=== PATIENT | female | born 1995 | race Caucasian/White ===

== ENCOUNTER 2018-10-24 07:07 | Emergency (ER) | payer BC ==
[2018-10-24] MEDS ORDERED: Lidocaine Viscous Sol 2% 15 ml UD Cup ONE ×2 (07:36→07:37)
[2018-10-24] MEDS ORDERED: Pantoprazole 40 MG VIAL ONE (07:36)
[2018-10-24] MEDS ORDERED: Ondansetron PF 4 MG/2 ML Vial ONE (07:36)
[2018-10-24] MEDS ORDERED: Mag-Al Plus 1200 MG/1200 MG/120 MG/30 ML UDCUP ONE (07:36)
[2018-10-24 08:10] LABS: #Basophils 0.1 thou/uL (0.0-0.2); #Eosinphils 0.2 thou/uL (0.0-0.7); #Lymphocytes 2.3 thou/uL (1.20-3.40); #Monocytes 0.8 thou/uL (0.11-0.59); #Neutrophils 7.6 thou/uL (1.40-6.50); %Basophils 1.3 % (0.0-1.0); %Eosinophils 1.8 % (0.0-10.0); %Lymphocytes 20.7 % (28.0-48.0); %Monocytes 7.5 % (0.0-4.0); %Neutrophils 68.7 % (31.0-61.0); Hemoglobin 15.8 g/dL (12.0-16.0); Mean Corpuscular HGB CONC 35.6 g/dL (32.0-36.0); Mean Corpuscular Hemoglobin 31.4 pg (25.0-35.0); Mean Corpuscular Volume 88.2 fL (78.0-98.0); Mean Platelet Volume 7.9 fL (7.4-10.4); Platelet Count 340 thou/uL (130-400); RBC Distribution Width 12.2 % (11.5-14.5); Red Blood Cell (RBC) Count 5.05 mill/uL (4.00-5.20); White Blood Cell (WBC) Count 11.1 thou/uL (4.8-10.8)
[2018-10-24 08:16] LABS: Bilirubin Negative (Negative); Blood, Urine Trace (Negative); Clarity Turbid (Clear); Glucose, Urine (Dipstick) Negative (Negative); Leukocyte Negative (Negative); Nitrite Negative (Negative); Pregnancy Test - Urine (BHCG) Negative (Negative); Pregu Control Background? CLEAR/WHITE (CLR/WHITE); Pregu Control Bar Appear? YES (CONTROL BAR); Protein, Urine (Dipstick) 100 mg/dL (Neg-Trace); Urobilinogen 0.2 mg/dL (0.2-1.0)
[2018-10-24 08:21] LABS: Bacteria/HPF 1+ HPF (None Seen); RBC/HPF 0-3 HPF (0-3); WBC/HPF 0-3 HPF (0-3)
[2018-10-24 08:22] LABS: Crystals/HPF 3+ AMORPH PHOS HPF (Negative)
[2018-10-24 08:27] LABS: ALT (SGPT) 35 U/L (8-55); AST (SGOT) 21 U/L (5-34); Albumin 4.3 g/dL (3.5-5.0); Alkaline Phosphatase 51 U/L (40-150); Anion Gap 17 mmol/L (10-20); BUN (Urea Nitrogen) 7 mg/dL (7.0-18.7); Bilirubin, Total 0.4 mg/dL (0.2-1.2); Calc. Creatinine Clearance 0 mL/min (70-130); Calcium 9.7 mg/dL (7.8-10.44); Carbon Dioxide 16 mmol/L (22-29); Chloride 109 mmol/L (98-107); Estimated GFR-MDRD Greater than 90; Glucose 121 mg/dL (70-105); Lipase 16 U/L (8-78); Potassium 3.7 mmol/L (3.5-5.1); Protein, Total 7.3 g/dL (6.0-8.3); Sodium 138 mmol/L (136-145)
--- NOTE | 2018-10-24 08:41 | CT ---
CT Abdomen Pelvis WO Con: 10/24/2018 7:33 AM HISTORY: Intermittent abdominal pain for 2 to 3 months COMPARISON: None. Procedure: Multiple contiguous axial images were obtained and a CT of the abdomen and pelvis without IV contrast . Coronal reformats were performed. FINDINGS: This examination is limited for the evaluation of solid organs and vascular structures due to the lac k of intravenous contrast. Lower Chest: within normal limits. Abdomen: Liver: within normal limits. Bile Ducts: Normal caliber. Gallbladder: No calcified gallstones. Normal caliber wall. Pancreas: within normal limits. Spleen: within normal limits. Adrenals: within normal limits. Kidneys: within normal limits. Pelvis: Reproductive Organs: No pelvic masses. Ureters: within normal limits. Bladder: within normal limits. Bowel: Normal caliber. Normal appendix. Mesenteric Lymph Nodes: No enlarged mesenteric lymph nodes. Peritoneum: No ascites or free air, no fluid collection. Vessels: Normal caliber aorta Retroperitoneum: within normal limits. Abdominal Wall: within normal limits. Bones: within normal limits. IMPRESSION: No evidence of acute intraabdominal\pelvic abnormality.
== END 2018-10-24 09:09 | disposition home or self-care (01) ==
LOC: SCSER 07:07
DX: R10.9 Unspecified abdominal pain (principal); F41.9 Anxiety disorder, unspecified; F31.9 Bipolar disorder, unspecified; F17.210 Nicotine dependence, cigarettes, uncomplicated; Z79.899 Other long term (current) drug therapy
CPT/HCPCS: 74176; 80053; 81003; 81015; 81025; 83690; 85025; 96361; 96374; 96375; C9113; J2405

== ENCOUNTER 2019-02-12 10:35 | Inpatient (IN) | payer BC ==
[2019-02-12 11:47] LABS: #Basophils 0.1 thou/uL (0.0-0.2); #Eosinphils 0.1 thou/uL (0.0-0.7); #Lymphocytes 1.4 thou/uL (1.20-3.40); #Monocytes 0.9 thou/uL (0.11-0.59); #Neutrophils 7.6 thou/uL (1.40-6.50); %Basophils 0.9 % (0.0-1.0); %Eosinophils 0.8 % (0.0-10.0); %Lymphocytes 13.9 % (21.0-51.0); %Monocytes 8.7 % (0.0-10.0); %Neutrophils 75.7 % (42.0-75.0); Mean Corpuscular HGB CONC 34.2 g/dL (32.0-36.0); Mean Corpuscular Hemoglobin 30.5 pg (27.0-31.0); Mean Corpuscular Volume 89.3 fL (78.0-98.0); Mean Platelet Volume 7.2 fL (7.4-10.4); Platelet Count 359 thou/uL (130-400); RBC Distribution Width 11.8 % (11.5-14.5); Red Blood Cell (RBC) Count 5.25 mill/uL (4.20-5.40)
[2019-02-12 11:54] LABS: BHCG - Serum Negative (NEGATIVE); Pregs Control Background? CLEAR/WHITE (CLR/WHITE); Pregs Control Bar Appear? YES (CONTROL BAR)
[2019-02-12 12:02] LABS: ALT (SGPT) 672 U/L (8-55); AST (SGOT) 241 U/L (5-34); Albumin 4.6 g/dL (3.5-5.0); Alkaline Phosphatase 133 U/L (40-150); Anion Gap 18 mmol/L (10-20); BUN (Urea Nitrogen) 6 mg/dL (7.0-18.7); Bilirubin, Total 5.9 mg/dL (0.2-1.2); Calc. Creatinine Clearance 0 mL/min (70-130); Calcium 10.4 mg/dL (7.8-10.44); Carbon Dioxide 24 mmol/L (22-29); Chloride 102 mmol/L (98-107); Estimated GFR-MDRD Greater than 90; Globulin 3.3 g/dL (2.4-3.5); Glucose 88 mg/dL (70-105); Lipase 26 U/L (8-78); Potassium 3.7 mmol/L (3.5-5.1); Protein, Total 7.9 g/dL (6.0-8.3); Sodium 140 mmol/L (136-145)
[2019-02-12 12:38] LABS: Bilirubin Large (Negative); Blood, Urine Trace (Negative); Clarity Cloudy (Clear); Glucose, Urine (Dipstick) Negative (Negative); Leukocyte Negative (Negative); Nitrite Negative (Negative); Protein, Urine (Dipstick) 100 mg/dL (Neg-Trace)
[2019-02-12] MEDS ORDERED: Ondansetron PF 4 MG/2 ML Vial ONE (12:38)
[2019-02-12] MEDS ORDERED: Morphine 4 MG/ML VIAL ONE ×3 (12:38→15:32)
[2019-02-12] MEDS ORDERED: Famotidine/PF 20 mg/2ml Vial ONE (12:38)
[2019-02-12 12:42] LABS: Bacteria/HPF 3+ HPF (None Seen); Mucous/LPF 1+ LPF (<2+)
[2019-02-12] MEDS ORDERED: Gadobenate Dimeglumine 529 MG/1 ML (20ML VIAL) ONE (13:00)
--- NOTE | 2019-02-12 13:43 | ULT ---
GALLBLADDER ULTRASOUND: Date: 02/12/19 INDICATION: Abdominal pain. FINDINGS: Gallbladder appears unremarkable. Gallbladder folds are identified; however, no evidence of gallstone s. Common duct is dilated, measured at 1.8-2.0 cm. No evidence of common duct stone identified. The visualized liver, pancreas, and right kidney appear unremarkable. Technologist describes a positive Maciel's sign. IMPRESSION: No evidence of gallstones identified. There is dilatation of the common bile duct. Positive Maciel's sign. Consider ERCP. POS: OFF
[2019-02-12 16:11] VITALS: BMI 27.0
[2019-02-12] MEDS ORDERED: Ondansetron PF 4 MG/2 ML Vial IVP PRN (16:29)
[2019-02-12] MEDS: Dextrose 5 %-0.45 % NaCl 1,000 ML IV SCH (16:53)
[2019-02-12] MEDS: Morphine 2 MG/ML SYRINGE SLOW IVP PRN ×2 (20:13→22:35)
--- NOTE | 2019-02-12 22:49 | CON ---
DATE OF CONSULTATION: 02/12/2019 CHIEF COMPLAINT: Abdominal pain. HISTORY OF PRESENT ILLNESS: Ms. Mcmillan is a 23-year-old woman who has had episodic aching to cramping pain in the epigastric region for the last 6 months. The pain radiates through to her back and up towards her lower substernal area. The pain is continuous for typically 2 days, but has lasted as long as a week and then goes away. The pain occurs around once per month. This episode has been more severe and is associated with more back pain. She has had nausea and vomiting several times per day over the last few days since this episode started the day before yesterday. She has had no hematemesis. No diarrhea or blood in the stool. Occasionally she gets a little mild constipation with incomplete emptying. No fever. Her weight has been stable. She did go to the emergency room back in September of 2018. At that time, she had a CT scan of the abdomen and pelvis performed. The CT showed normal bile ducts at that time. Her liver tests were normal. The pain does sometimes worsen about an hour after eating. She came to the emergency room today and ultrasound was performed that showed a dilated bile duct and elevated liver tests and she was admitted for further care. PAST MEDICAL HISTORY: Otherwise negative. PAST SURGICAL HISTORY: Negative. FAMILY HISTORY: Negative for GI malignancy or liver disease. SOCIAL HISTORY: Two 24-ounce malt liquor, drinks around once per week. She did try multiple different drugs as a teenager including marijuana and mushrooms and LSD and once tried methamphetamine. She has never taken anything IV. She smokes about a pack per month of cigarettes. ALLERGIES: NO KNOWN DRUG ALLERGIES. MEDICATIONS: Prior to admission, pantoprazole 40 mg daily. She has been on this since October without significant change in her symptoms from what I can tell. She has taken Tums intermittently during the pain episodes, which really also has not helped much. Takes control and sertraline. REVIEW OF SYSTEMS: Negative x10 systems reviewed except as stated in history of present illness. PHYSICAL EXAMINATION: VITAL SIGNS: Temperature 98.6, pulse 73, blood pressure 125/83. GENERAL: She is in no acute distress. Alert and oriented x3. EYES: Have no scleral icterus. Oropharynx is clear without lesions. No cervical or supraclavicular lymphadenopathy. LUNGS: Clear to auscultation bilaterally. HEART: Regular rate and rhythm without murmur. ABDOMEN: Soft. Mild tenderness in the epigastric region without guarding. Bowel sounds are present. EXTREMITIES: No lower extremity edema. Cranial nerves are grossly intact. LABORATORY DATA: Her creatinine is 0.74. Bilirubin is 5.9, AST 241, ALT 672, alkaline phosphatase 133, albumin 4.6, lipase 26. Serum test is negative. White blood cell count 10.0, hemoglobin 16.0, platelets 359. IMAGING DATA: She had an ultrasound of the abdomen that showed common bile duct dilated to 1.8 cm to 2 cm. No obvious stones were seen in the gallbladder. IMPRESSION: Abnormal liver function tests and right upper quadrant pain. These findings are most consistent with choledocholithiasis given the dilation of the bile duct in the intermittent episodes of the pain. She has obstructive liver tests, however, alkaline phosphatase is normal. Given the marked dilation of the bile duct and normal alkaline phosphatase and no stones in the gallbladder, I will request an MRCP this evening just to help identify if there is an obvious stone or size of the stone and rule out other obstructive process. We will plan for endoscopic retrograde cholangiopancreatography tomorrow morning. RECOMMENDATIONS: The risks and benefits of ERCP were discussed in detail with the patient. We will plan for ERCP tomorrow morning. Job ID: [id number]
--- NOTE | 2019-02-13 00:21 | HP ---
PRIMARY CARE PHYSICIAN: Eleuterio Sher MD CHIEF COMPLAINT: Abdominal pain. HISTORY OF PRESENT ILLNESS: This is a 23-year-old female, patient of Dr. Eleuterio Sher, with a history of about 6 months of on and off worsening abdominal pain. She has been told in the past, both at Urgent Care and with her primary care physician that it was likely gastritis. She has not had any improvement with Protonix. She states that the pain has worsened and coming more frequently over the past few months. The pain used to only last about one day, now can last from 3 to 7 days as she was seen in [place] [facility], had a normal workup in September 2018. She denies fevers, but does have on and off chills. She has now had worsening nausea and vomiting. No diarrhea, but no appetite. She states this episode started about 3 days ago after drinking a Dr Pepper. She does state that her diet has not been very good and she eats junk food often. PAST MEDICAL HISTORY: Anxiety, depression. PAST SURGICAL HISTORY: None. PAST HOSPITALIZATIONS: Only emergency room visits. MEDICATIONS: Include; 1. Sertraline one daily. 2. Pantoprazole 40 mg daily, started in October. PAST SURGICAL HISTORY: No surgeries. SOCIAL HISTORY: Occasional smoking. Occasional alcohol. She is a college student studying [employer]. No recent travel. REVIEW OF SYSTEMS: As per the history of present illness. No recent fevers or chills. HEENT: No headache, visual or hearing changes. CARDIAC: Denies chest pain, shortness of breath or palpitations. PULMONARY: Denies cough or hemoptysis. GI: As per the history of present illness with positive epigastric abdominal pain with radiation to her back, right upper quadrant pain. Positive nausea. Occasional vomiting. No diarrhea. No melena or hematochezia. : Denies dysuria or hematuria. NEUROLOGIC: Denies weakness, seizure, or syncope. PHYSICAL EXAMINATION: VITAL SIGNS: Temperature 98.6, pulse is 73, respirations 18, blood pressure 125/83, and pulse ox is 99% on room air. GENERAL: She is awake and alert. She is uncomfortable, lying in bed, but no acute distress. HEENT: Mucosa is moist. NECK: Supple. HEART: Regular rate and rhythm. LUNGS: Clear. ABDOMEN: With decreased bowel sounds. Positive right upper quadrant tenderness. Positive Maciel sign. Positive epigastric tenderness. No rebound or guarding. No CVA tenderness. EXTREMITIES: No edema. LABORATORY DATA: Urinalysis with positive protein, positive ketone, trace blood, large bilirubin, 3+ bacteria, but multiple epithelial cells. White blood cell count 10,000, hemoglobin and hematocrit 16 and 46.9 with normal differential. Platelets of 359. Sodium 140, potassium 3.7, chloride 102, CO2 of 24, BUN and creatinine 6 and 0.74 with a GFR over 90, serum glucose of 88, calcium 10.4, total bilirubin 5.9, AST and ALT are elevated at 241 and 671, alkaline phosphatase normal at 133. Lipase was normal at 26. test was negative. Abdominal ultrasound revealed no gallstones, but dilation of common bile duct with positive Maciel sign. ASSESSMENT AND PLAN: 1. This is a 23-year-old female patient with a history of 6 months of on and off and worsening abdominal pain, now with evidence of choledocholithiasis. GI has been consulted. We will evaluate for further studies. Per Radiology, may need ERCP. We will keep her n.p.o. at this time. 2. Analgesia. We will continue morphine for pain. Follow labs as well. Job ID: [id number]
[2019-02-13] MEDS: Dextrose 5 %-0.45 % NaCl 1,000 ML IV SCH (03:36)
[2019-02-13] MEDS: Morphine 2 MG/ML SYRINGE SLOW IVP PRN ×3 (03:36→22:09)
[2019-02-13 05:54] LABS: #Basophils 0.1 thou/uL (0.0-0.2); #Eosinphils 0.1 thou/uL (0.0-0.7); #Lymphocytes 1.5 thou/uL (1.20-3.40); #Monocytes 1.3 thou/uL (0.11-0.59); #Neutrophils 6.1 thou/uL (1.40-6.50); %Basophils 0.7 % (0.0-1.0); %Eosinophils 1.5 % (0.0-10.0); %Lymphocytes 16.4 % (21.0-51.0); %Monocytes 14.6 % (0.0-10.0); %Neutrophils 66.9 % (42.0-75.0); Hemoglobin 14.5 g/dL (12.0-16.0); Mean Corpuscular HGB CONC 34.5 g/dL (32.0-36.0); Mean Corpuscular Hemoglobin 31.1 pg (27.0-31.0); Mean Corpuscular Volume 90.3 fL (78.0-98.0); Mean Platelet Volume 7.3 fL (7.4-10.4); Platelet Count 280 thou/uL (130-400); RBC Distribution Width 11.8 % (11.5-14.5); Red Blood Cell (RBC) Count 4.66 mill/uL (4.20-5.40); White Blood Cell (WBC) Count 9.1 thou/uL (4.8-10.8)
[2019-02-13 06:32] LABS: ALT (SGPT) 391 U/L (8-55); AST (SGOT) 105 U/L (5-34); Albumin 3.9 g/dL (3.5-5.0); Alkaline Phosphatase 118 U/L (40-150); Anion Gap 11 mmol/L (10-20); BUN (Urea Nitrogen) Less than 4 mg/dL (7.0-18.7); Bilirubin, Total 5.8 mg/dL (0.2-1.2); Calc. Creatinine Clearance 138 mL/min (70-130); Calcium 9.1 mg/dL (7.8-10.44); Carbon Dioxide 23 mmol/L (22-29); Chloride 103 mmol/L (98-107); Estimated GFR-MDRD Greater than 90; Globulin 2.6 g/dL (2.4-3.5); Glucose 93 mg/dL (70-105); Potassium 3.4 mmol/L (3.5-5.1); Protein, Total 6.5 g/dL (6.0-8.3); Sodium 134 mmol/L (136-145)
[2019-02-13] MEDS ORDERED: Morphine 2 MG/ML SYRINGE SLOW IVP SCH (09:00)
[2019-02-13] MEDS ORDERED: Midazolam HCl 2 mg/2 ml Vial ONE ×2 (09:26→10:39)
--- NOTE | 2019-02-13 09:46 | CON ---
DATE OF CONSULTATION: CHIEF COMPLAINT: Right upper quadrant abdominal pain. HISTORY OF PRESENT ILLNESS: The patient is a 23-year-old female with a several month history of intermittent right upper quadrant pain radiating to the back, worse with eating, associated with nausea and vomiting. PAST MEDICAL HISTORY: Otherwise, healthy. PAST SURGICAL HISTORY: None. ALLERGIES: NO KNOWN DRUG ALLERGIES. SOCIAL HISTORY: She is single. She is a student at [employer]. Works at a coffee shop. Smokes 1 pack per month. She says she drinks alcohol fairly regularly. FAMILY HISTORY: Hypertension. PHYSICAL EXAMINATION: VITAL SIGNS: Temperature 97.7, pulse 60, and blood pressure 121/81. GENERAL: Well-developed, well-nourished female, in pain. HEENT: Reveals possible jaundice. LUNGS: Clear. HEART: Regular rate and rhythm. ABDOMEN: Tender in the right upper quadrant. EXTREMITIES: Unremarkable. LABORATORY DATA: Her white count is 9.1, H and H of 14 and 42, and platelet count 280. Her electrolytes show sodium 134, potassium 3.4. Her LFTs are elevated with a bilirubin of 5.8, AST 105, and ALT of 391. test negative. She had an MRCP showing a common duct stone. Ultrasound also showed dilated common bile duct. They did not see gallstones on that. ASSESSMENT: Choledocholithiasis. PLAN: ERCP today. Recommend laparoscopic cholecystectomy in the morning. I have discussed the planned procedure as well as risk of bleeding, infection, injury to bile duct, injury to bowel, need to open. She understands, gives informed consent. Job ID: [id number]
[2019-02-13] MEDS ORDERED: Iothalamate Meglumine 60% 50 ML VIAL FS ONE (10:25)
[2019-02-13] MEDS ORDERED: Fentanyl 100 MCG/2 ML VIAL ONE (10:39)
[2019-02-13] MEDS ORDERED: cefTRIAXone\\ROCEPHIN 1 GM in Sodium Chloride 0.9% 100 ML IVPB SCH (10:45)
[2019-02-13] MEDS ORDERED: Indomethacin 50 MG SUPP ONE (10:48)
[2019-02-13] MEDS ORDERED: Promethazine HCl 25 MG/ML VIAL ONE (12:08)
[2019-02-13] MEDS ORDERED: Meperidine HCl/PF 25 MG/ML VIAL ONE (12:20)
--- NOTE | 2019-02-13 12:22 | RAD ---
Exam: ERCP: HISTORY: Dilated common bile duct and distal common bile duct stone Injection of the common bile duct demonstrates very marked dilatation of the common bile duct and com mon hepatic duct. There is evidence for a distal common duct obstructing stone. Following stone removal reinjection demonstrates some decompression of the common duct and intrahepatic ducts. IMPRESSION: Markedly dilated common bile duct with decompression after removal of the distal common duct stone.
[2019-02-13] MEDS ORDERED: Lactated Ringer's 1,000 ML IV SCH (12:45)
[2019-02-13] MEDS: Lactated Ringer's 1,000 ML IV SCH ×2 (13:57→22:07)
[2019-02-13] MEDS ORDERED: Glycopyrrolate 0.2 MG/ML 5 ML SYRINGE ONE (14:30)
[2019-02-13] MEDS ORDERED: Lidocaine 1% PF 5 ML VIAL ONE (14:30)
[2019-02-13] MEDS ORDERED: Dexamethasone 20 MG/5 ML VIAL ONE (14:30)
[2019-02-13] MEDS ORDERED: PROPOFOL 200 MG/20 ML VIAL ONE (14:30)
[2019-02-13] MEDS ORDERED: Ondansetron PF 4 MG/2 ML Vial ONE (14:30)
[2019-02-13] MEDS ORDERED: Rocuronium Bromide 10 MG/ML (10ML VIAL) ONE (14:30)
--- NOTE | 2019-02-13 15:29 | PRG ---
DATE OF SERVICE: 02/13/2019 SUBJECTIVE: The patient is feeling better. She has less pain in her abdomen. Morphine is giving her some relief as she was able to sleep. After having the ERCP today, still has not had much to eat as she is having surgery again tomorrow. No fevers or chills. No nausea or vomiting. Just feels fatigued today. OBJECTIVE: VITAL SIGNS: Temperature 97.8 with T-max of 98.2, pulse is 71, respirations 16, blood pressure 119/82, and pulse ox is 100% on room air. GENERAL: She is awake and alert. She is lethargic, but answers questions appropriately. HEENT: Mucosa is moist. NECK: Supple. HEART: Regular rate and rhythm. LUNGS: Clear. ABDOMEN: With positive bowel sounds. LABORATORY DATA: White blood cell count 9100, hemoglobin and hematocrit 14.5 and 42.1, and platelets of 280. Sodium 134, potassium 3.4, chloride 103, CO2 of 23, BUN and creatinine less than 4 and 0.75. Total bilirubin 5.8, AST of 105, and ALT of 391. IMAGING STUDIES: ERCP x-ray revealed markedly dilated common bile duct with decompression after removal of distal common duct stone. ASSESSMENT AND PLAN: This is a 23-year-old female patient admitted with choledocholithiasis with obstructive indices on her labs with elevated bilirubin, elevated AST and ALT, now status post ERCP with ductal stone retrieval. 1. Choledocholithiasis, doing well. Appreciate Dr. Pena's assistance. Continue plan per Dr. Pena. 2. Plan for cholecystectomy by Dr. Brody laparoscopically tomorrow to prevent recurrence. The patient understands risks. 3. Anxiety and depression. We will continue sertraline. 4. Disposition plan per Gastroenterology and Surgery postoperatively. Job ID: [id number]
--- NOTE | 2019-02-13 15:41 | OP ---
DATE OF PROCEDURE: 02/12/2019 PROCEDURES PERFORMED: Endoscopic retrograde cholangiopancreatography with sphincterotomy and balloon stone extraction and basket crushing of the stone(mechanical lithotripsy). PREOPERATIVE DIAGNOSIS: Choledocholithiasis. DESCRIPTION OF PROCEDURE: Informed consent was obtained from the patient. She was sedated with general anesthesia. She was placed in prone position. The duodenoscope was advanced easily to the second portion of the duodenum. The ampulla was identified and appeared unremarkable. The common bile duct was easily selectively cannulated. This was cannulated with a guidewire, and then the sphincterotome was advanced into the duct, and cholangiogram was performed. The cholangiogram showed a large common bile duct dilated up to 2 cm proximally. The distal common bile duct had a single filling defect. The intrahepatic ducts were unremarkable. A complete sphincterotomy was performed. A 15 mm balloon did sweep through the distal duct and through the sphincterotomy easily. The stone, however, was very firm, and when the stone was attempted to be swept with the balloon, they could not pass through the sphincterotomy. A basket was then placed, and the stone was grasped with the wires of the basket without difficulty, and this stone was then crushed. The balloon was reinserted, and two smaller stone fragments were swept from the duct and finally one larger stone fragment was swept from the duct. The stone rigidly measured 12 mm, which could be seen on the image within the wires of the basket. Occlusion cholangiogram then confirmed the duct to be clear. The contrast flowed rapidly from the duct. The air and fluid were suctioned from the stomach, and the procedure was completed. IMPRESSION: 1. Choledocholithiasis. Cholangiogram showed a single filling defect in the distal common bile duct. The common bile duct was dilated proximally up to 2 cm, which could indicate that she has a choledochal cyst; however, CT scan from back in August did not show dilation of the bile duct. The intrahepatic ducts were unremarkable. 2. Complete sphincterotomy was performed. 3. A hard yellow 12 mm stone was removed from the duct. First it was crushed with a stone back stayer into 3 fragments and then swept from the duct with a 15 mm balloon. 4. Occlusion cholangiogram confirmed the duct to be clear. RECOMMENDATIONS: 1. Check her liver tests in the morning. 2. Laparoscopic cholecystectomy tomorrow. Dr. Brody has seen the patient. Job ID: [id number]
[2019-02-13] MEDS ORDERED: Ondansetron PF 4 MG/2 ML Vial IVP PRN (15:52)
[2019-02-14] MEDS: Lactated Ringer's 1,000 ML IV SCH ×3 (05:49→20:23)
[2019-02-14 06:07] LABS: #Eosinphils 0.1 thou/uL (0.0-0.7); #Lymphocytes 1.9 thou/uL (1.20-3.40); #Monocytes 1.2 thou/uL (0.11-0.59); #Neutrophils 8.5 thou/uL (1.40-6.50); %Basophils 0.3 % (0.0-1.0); %Eosinophils 0.4 % (0.0-10.0); %Monocytes 10.4 % (0.0-10.0); %Neutrophils 72.9 % (42.0-75.0); Hemoglobin 13.5 g/dL (12.0-16.0); Mean Corpuscular HGB CONC 34.5 g/dL (32.0-36.0); Mean Corpuscular Hemoglobin 31.6 pg (27.0-31.0); Mean Corpuscular Volume 91.6 fL (78.0-98.0); Mean Platelet Volume 7.4 fL (7.4-10.4); Platelet Count 290 thou/uL (130-400); RBC Distribution Width 11.8 % (11.5-14.5); Red Blood Cell (RBC) Count 4.28 mill/uL (4.20-5.40); White Blood Cell (WBC) Count 11.6 thou/uL (4.8-10.8)
[2019-02-14 06:30] LABS: ALT (SGPT) 349 U/L (8-55); AST (SGOT) 121 U/L (5-34); Albumin 3.7 g/dL (3.5-5.0); Alkaline Phosphatase 102 U/L (40-150); Anion Gap 12 mmol/L (10-20); BUN (Urea Nitrogen) 5 mg/dL (7.0-18.7); Bilirubin, Total 1.9 mg/dL (0.2-1.2); Calc. Creatinine Clearance 157 mL/min (70-130); Calcium 9.3 mg/dL (7.8-10.44); Carbon Dioxide 26 mmol/L (22-29); Chloride 105 mmol/L (98-107); Estimated GFR-MDRD Greater than 90; Globulin 2.5 g/dL (2.4-3.5); Glucose 93 mg/dL (70-105); Potassium 3.9 mmol/L (3.5-5.1); Protein, Total 6.2 g/dL (6.0-8.3); Sodium 139 mmol/L (136-145)
[2019-02-14] MEDS ORDERED: Bupivacaine/Epinephrine 0.25% 30 ML VIAL ONE (06:35)
[2019-02-14] MEDS ORDERED: Midazolam HCl 2 mg/2 ml Vial ONE ×2 (06:37→07:10)
[2019-02-14] MEDS ORDERED: Fentanyl 100 MCG/2 ML VIAL ONE ×3 (06:37→09:07)
[2019-02-14] MEDS ORDERED: Sodium Chloride 0.9% 100 ML ONE (07:02)
[2019-02-14] MEDS ORDERED: cefOXitin 2 GM VIAL ONE (07:02)
[2019-02-14] MEDS ORDERED: HYDROcodone/Acetaminophen 10/325 mg Tablet PO PRN (08:42)
[2019-02-14] MEDS ORDERED: Dextrose 50% Abboject 50 ML SYRINGE SLOW IVP PRN (08:42)
[2019-02-14] MEDS ORDERED: Promethazine HCl 25 MG/ML VIAL IM PRN ×2 (08:42→08:50)
[2019-02-14] MEDS ORDERED: Morphine 4 MG/ML VIAL SLOW IVP PRN (08:42)
[2019-02-14] MEDS ORDERED: Dextrose 5% in Water 1,000 ML IV PRN (08:42)
[2019-02-14] MEDS ORDERED: Mag-Al 1200 mg/1200 mg/30 ML UDCUP PO PRN (08:42)
[2019-02-14] MEDS ORDERED: Calcium Carbonate 500 MG ChewTAB PO PRN (08:42)
[2019-02-14] MEDS ORDERED: Ondansetron PF 4 MG/2 ML Vial IVP PRN (08:42)
[2019-02-14] MEDS ORDERED: hydrALAZINE 20 MG/ML VIAL SLOW IVP PRN (08:42)
[2019-02-14] MEDS ORDERED: Ondansetron HCl/PF 4 MG/2 ML Vial IVP PRN ×2 (08:50→09:21)
[2019-02-14] MEDS ORDERED: Promethazine HCl 25 MG/ML VIAL SLOW IVP PRN (08:50)
[2019-02-14] MEDS ORDERED: Morphine 2 MG/ML SYRINGE ONE ×2 (09:10→09:17)
[2019-02-14] MEDS ORDERED: Non-Formulary Medication 1 EACH PO PRN (09:21)
[2019-02-14] MEDS ORDERED: Morphine Sulfate 2 MG/ML SYRINGE SLOW IVP PRN (09:21)
[2019-02-14] MEDS ORDERED: Promethazine HCl 25 MG/ML VIAL IM/IV PRN (09:21)
[2019-02-14] MEDS ORDERED: PACU-Morphine 4MG/ML VIAL SLOW IVP PRN (09:21)
--- NOTE | 2019-02-14 10:22 | MRI ---
MRI ABDOMEN WITH AND WITHOUT CONTRAST: HISTORY: Abdominal pain. Elevated liver function tests. Dilated common bile duct. COMPARISON: Ultrasound from 02/12/2019. TECHNIQUE: Multiplanar multisequence MRI of the abdomen is performed prior to and after the intravenous administ ration of contrast. Three-dimensional rendering provided for MRCP. FINDINGS: No significant pericardial fluid. No pleural effusions. Marked intrahepatic and extrahepatic biliary dilatation to the level of the distal common bile duct, for which there is a calculus. This stone measures approximately 5 x 4 x 6 mm. There is ectasia of the elongated gallbladder from biliary obstruction and not cystic duct obstruction. No hydronephrosis. The adrenal glands are unremarkable, as well as the spleen and the pancreas. The marrow signal of the spine is normal. Trace free fluid in the pelvis. Appendix is felt to be visualized and is normal. No abnormal enhancing mass of the liver, spleen, pancreas or kidneys. IMPRESSION: Partially obstructive 5 x 6 x 4 mm calculus of the distal common bile duct with subsequent intrahepat ic and extrahepatic biliary dilatation. POS: CET
[2019-02-14] MEDS: Enoxaparin Sodium 40 MG/0.4 ML SYRINGE SC SCH (10:28)
[2019-02-14] MEDS: Famotidine 20 MG TAB PO SCH ×2 (10:29→20:22)
[2019-02-14] MEDS: Famotidine/PF 20 mg/2ml Vial SLOW IVP SCH ×2 (10:29→20:23)
[2019-02-14] MEDS: Morphine 2 MG/ML SYRINGE SLOW IVP PRN ×2 (11:05→22:19)
[2019-02-14] MEDS: Piperacillin/Tazobactam 3.375 GM in Sodium Chloride 0.9% 100 ML IVPB SCH ×3 (11:56→23:44)
[2019-02-14] MEDS: Ketorolac Tromethamine 30 MG/ML VIAL IVP SCH ×3 (11:56→23:44)
[2019-02-14] MEDS: HYDROcodone/Acetaminophen 10/325 mg Tablet PO PRN ×2 (13:07→18:40)
--- NOTE | 2019-02-14 13:11 | PRG ---
DATE OF SERVICE: 02/14/2019 SUBJECTIVE: Ms. Mcmillan had immediate improvement in her pain after ERCP and removal of the stone. She underwent cholecystectomy today and is having some postoperative pain from that. OBJECTIVE: VITAL SIGNS: Temperature is 98.0, pulse 80, blood pressure 126/76. GENERAL: She is in no acute distress. LUNGS: Clear to auscultation bilaterally. HEART: Regular rate and rhythm without murmur. ABDOMEN: Soft, but tender status post surgery. EXTREMITIES: Have no lower extremity edema. LABORATORY DATA: Her white blood cell count was 11.6 today. Her bilirubin has decreased to 1.9, AST 121, and ALT 349. IMPRESSION: 1. Choledocholithiasis status post sphincterotomy and balloon stone extraction and lithotripsy. 2. Status post cholecystectomy today. She has a drain in place associated with that. RECOMMENDATIONS: 1. Postoperative management for her status post gallbladder surgery per General Surgery. 2. Continue to follow the trend of the liver tests. 3. I will sign off for now. Please call if GI can be of assistance. Job ID: [id number]
--- NOTE | 2019-02-14 13:50 | OP ---
DATE OF PROCEDURE: 02/14/2019 PREOPERATIVE DIAGNOSIS: Acute cholecystitis. PROCEDURE PERFORMED: Laparoscopic cholecystectomy. INDICATIONS: A 23-year-old female who presented with choledocholithiasis, had an ERCP yesterday with sphincterotomy and stone extraction. FINDINGS: Very inflamed gallbladder with dilated cystic duct. DESCRIPTION OF PROCEDURE: After informed consent was obtained, the patient was taken to the operating room and given general endotracheal anesthesia, placed in the supine position. Abdomen was prepped and draped in usual fashion. Local anesthesia infiltrated subcutaneously and deep and a subumbilical incision was performed. Subcu divided sharply. The fascia grasped and 2 stay sutures of 0 Vicryl placed in each side of midline. Midline incised. Digital palpation revealed no local adhesions. A blunt 12 mm trocar inserted. Pneumoperitoneum was created to a pressure of 15 mmHg. A 0 degree laparoscope inserted under direct vision. Three 5 mm ports were placed subcostally. The gallbladder was encased in omentum and very inflamed. This was taken down utilizing electrocautery. The gallbladder was very thickened, but was decompressed. It was grasped with a toothed grasper and advanced superiorly. Dissection was performed and just followed the edge of the gallbladder down. The actual gallbladder was relatively small, which made this somewhat dangerous because the cystic duct was inflamed and dilated. Was able to differentiate this and dissected out, but it was too large for clips, so it was doubly ligated with 0 PDS endo-loops and divided. Then, the artery was triply ligated with hemoclips and divided. The gallbladder removed from its fossa utilizing electrocautery. It was placed in endosac, removed from the abdomen in the endosac. Hemostasis was assured. A drain was placed and brought out through the lateral-most incision, placed in the subhepatic space. Then trocars and retractors removed. The fascia was closed with interrupted 0 Vicryl suture. The skin was closed with interrupted 4-0 Rapide. Dermabond applied. The patient tolerated the procedure well, transferred to Recovery in good condition. Sponge and needle count verified correct x2. Job ID: [id number]
--- NOTE | 2019-02-14 17:26 | PRG ---
DATE OF SERVICE: 02/14/2019 SUBJECTIVE: Gretchen had her gallbladder out today. She is feeling a little bit better. She still has some pain. Otherwise, she is feeling well. No other medical complaints are noted. LABORATORY DATA: Hemoglobin is 13.5, hematocrit 39.2, and white blood count 11.6. AST and ALT are slightly elevated at 121 and 349. Otherwise, her chemistries are normal. IMPRESSION: Status post cholecystectomy with choledocholithiasis. PLAN: Continue current treatment. Job ID: [id number]
[2019-02-15] MEDS: HYDROcodone/Acetaminophen 10/325 mg Tablet PO PRN ×2 (03:43→09:46)
[2019-02-15] MEDS: Lactated Ringer's 1,000 ML IV SCH ×2 (05:02→12:44)
[2019-02-15] MEDS: Ketorolac Tromethamine 30 MG/ML VIAL IVP SCH ×2 (05:03→11:25)
[2019-02-15] MEDS: Piperacillin/Tazobactam 3.375 GM in Sodium Chloride 0.9% 100 ML IVPB SCH ×2 (05:03→11:25)
[2019-02-15 05:37] LABS: #Eosinphils 0.1 thou/uL (0.0-0.7); #Lymphocytes 2.4 thou/uL (1.20-3.40); #Monocytes 1.1 thou/uL (0.11-0.59); %Basophils 0.4 % (0.0-1.0); %Eosinophils 0.6 % (0.0-10.0); %Lymphocytes 22.9 % (21.0-51.0); %Monocytes 10.5 % (0.0-10.0); %Neutrophils 65.6 % (42.0-75.0); Mean Corpuscular HGB CONC 34.2 g/dL (32.0-36.0); Mean Corpuscular Volume 93.5 fL (78.0-98.0); Mean Platelet Volume 7.3 fL (7.4-10.4); Platelet Count 252 thou/uL (130-400); RBC Distribution Width 12.2 % (11.5-14.5); Red Blood Cell (RBC) Count 3.76 mill/uL (4.20-5.40); White Blood Cell (WBC) Count 10.6 thou/uL (4.8-10.8)
[2019-02-15 05:53] LABS: ALT (SGPT) 307 U/L (8-55); AST (SGOT) 120 U/L (5-34); Albumin 3.2 g/dL (3.5-5.0); Alkaline Phosphatase 79 U/L (40-150); Anion Gap 10 mmol/L (10-20); BUN (Urea Nitrogen) 4 mg/dL (7.0-18.7); Bilirubin, Total 1.3 mg/dL (0.2-1.2); Calc. Creatinine Clearance 164 mL/min (70-130); Calcium 8.6 mg/dL (7.8-10.44); Carbon Dioxide 24 mmol/L (22-29); Chloride 106 mmol/L (98-107); Estimated GFR-MDRD Greater than 90; Globulin 2.2 g/dL (2.4-3.5); Glucose 89 mg/dL (70-105); Lipase 28 U/L (8-78); Potassium 3.6 mmol/L (3.5-5.1); Protein, Total 5.4 g/dL (6.0-8.3); Sodium 136 mmol/L (136-145)
[2019-02-15 07:04] VITALS: BP 107/71; TEMP 97.6
[2019-02-15] MEDS: Famotidine/PF 20 mg/2ml Vial SLOW IVP SCH (08:12)
[2019-02-15] MEDS: Enoxaparin Sodium 40 MG/0.4 ML SYRINGE SC SCH (08:13)
[2019-02-15] MEDS: Famotidine 20 MG TAB PO SCH (08:13)
[2019-02-15] MEDS: Morphine 2 MG/ML SYRINGE SLOW IVP PRN ×2 (08:17→14:57)
--- NOTE | 2019-02-15 12:11 | PRG ---
DATE OF SERVICE: 02/15/2019 SUBJECTIVE: Ms. Mcmillan is awake and alert. She had laparoscopic cholecystectomy yesterday. She still has some pain and some discomfort, but she is tolerating p.o. intake. OBJECTIVE: VITAL SIGNS: Temperature 97.6 and BP 107/71. LUNGS: Clear. HEART: Reveals no murmur. ABDOMEN: Soft. There is diffuse tenderness throughout. Bowel sounds are present and active. LABORATORY DATA: Her white blood count is 10.6, hemoglobin 12.0, and hematocrit 35.1. ALT is down to 307, AST is down to 120, and bilirubin 1.3. IMPRESSION: Choledocholithiasis status post cholecystectomy. PLAN: The patient has improved. We will await input from Dr. Brody about discharge, possibly one more day today. Job ID: [id number]
--- NOTE | 2019-02-16 01:54 | DIS ---
DATE OF ADMISSION: 02/12/2019 DATE OF DISCHARGE: 02/15/2019 DISCHARGE DIAGNOSES: 1. Acute cholecystitis. 2. Choledocholithiasis. PROCEDURES DURING ADMISSION: 1. Endoscopic retrograde cholangiopancreatography. 2. Sphincterotomy. 3. Stone extraction. 4. Laparoscopic cholecystectomy. HOSPITAL COURSE: The patient was admitted, given IV antibiotics, IV fluids. GI was consulted for elevated bilirubin. She underwent an ERCP with stone extraction. The following day, she underwent a laparoscopic cholecystectomy. Postoperatively, she is doing well. She is tolerating liquids well. Her pain is controlled on p.o. medications. She is discharged home on hydrocodone, Zofran, and doxycycline. She will follow up with me in 2 weeks. Job ID: [id number]
== END 2019-02-15 17:11 | disposition home or self-care (01) | DRG 419 ==
LOC: SCSER 10:35 → T4-B 14:15
PROVIDERS: ADMIT Family Medicine; ATTEND Family Medicine
PROC: 0FC98ZZ Extirpation of Matter from Common Bile Duct, Via Natural or Artificial Opening Endoscopic (ICD-10-PCS; 2019-02-12)
PROC: BF131ZZ Fluoroscopy of Gallbladder and Bile Ducts using Low Osmolar Contrast (ICD-10-PCS; 2019-02-12)
PROC: 0FT44ZZ Resection of Gallbladder, Percutaneous Endoscopic Approach (ICD-10-PCS; principal; 2019-02-14)
DX: K80.43 Calculus of bile duct with acute cholecystitis with obstruction (principal); F41.9 Anxiety disorder, unspecified; F17.210 Nicotine dependence, cigarettes, uncomplicated; K59.00 Constipation, unspecified; F31.9 Bipolar disorder, unspecified
CPT/HCPCS: 36415; 74183; 74330; 76705; 80053; 81003; 81015; 83690; 84703; 85025; 88304; 96361; 96374; 96375; 96376; A9577; J0694; J0696; J1100; J1885; J2001; J2175; J2250; J2270; J2405; J2543; J2550; J2704; J3010; J3490; S0028

== ENCOUNTER 2019-08-22 12:07 | Outpatient (CLI) | payer BC ==
--- NOTE | 2019-08-22 13:11 | RAD ---
Exam: 3 views thoracic spine HISTORY: Transverse process fracture. FINDINGS: AP, lateral and swimmer's thoracic radiograph is submitted 12 thoracic type vertebra. There appears t o be a fracture involving the left transverse process at T8. Fracture lucency is noted. Thoracic spine vertebral body heights are maintained. No vertebral body fracture. IMPRESSION: T8 left transverse process fracture.
== END 2019-08-22 12:08 | disposition home or self-care (01) ==
LOC: SCSRAD 12:07
PROVIDERS: ATTEND Family Medicine
DX: S22.069D Unspecified fracture of T7-T8 vertebra, subsequent encounter for fracture with routine healing (principal)
CPT/HCPCS: 72072